=== PATIENT | female | born 1970 | race Caucasian/White ===

== ENCOUNTER 2024-07-01 18:16 | Emergency (ER) | payer OTHER ==
[2024-07-01 18:26] VITALS: RESP 18; TEMP 97.9
--- NOTE | 2024-07-01 19:00 | ERPHSYRPT ---
- History of Present Illness Source: patient Exam Limitations: no limitations Patient Subjective Stated Complaint: Pt states "I have a headache and I took my blood pressure and it was within normal then the headache did not go away so I took my pressure again when I got home and my pressure was up." Triage Nursing Assessment: Pt presented alert and oriented X3, skin pwd. Pt ambulates with an upright steady gait, able to speak in clear full senteces.Pt resting comfortably on the bed. Timing/Duration: today Severity: mild Associated Symptoms: chills, headaches, No nausea, No vomiting, No abdominal pain, No shortness of breath, No fever Hx Tetanus, Diphtheria Vaccination/Date Given: No Hx Influenza Vaccination/Date Given: No Hx Pneumococcal Vaccination/Date Given: No Immunizations Up to Date: No <ALLISNO GARZA - Last Filed: 07/01/24 19:03> <PIERO PAVON - Last Filed: 07/01/24 21:57> - History of Present Illness Time Seen by Provider: 07/01/24 18:40 Physician History: 54yo f no significant pmhx presents via private vehicle for elevated BP that she noticed earlier today at work. Pt reports she had a RODGERS that was behind her eyes and in the back of her head earlier in the day, reports she checked her BP at that time and it was > 130 systolic which she states is high for her. Pt reports she checked her BP again at home and it was >170 systolic. Pt does not take any BP medications. Pt reports her RODGERS has resolved, reports she is feeling anxious about her elevated BP readings. Pt denies any blurry vision, dizziness, CP, sob, n/v. Pt does endorse some chills and recent sick contacts on an airplane. (ALLISON GARZA) Allergies/Adverse Reactions: Sulfa (Sulfonamide Antibiotics) Allergy (Intermediate, Verified 07/01/24 18:26) Hives codeine Adverse Reaction (Intermediate, Verified 07/01/24 18:26) Vomiting Home Medications: No Reportable Medications [No Reported Medications] 07/01/24 [History] Travel Risk - International Travel Have you traveled outside of the country in past 3 weeks: No - Emerging Infectious Disease Are you exhibiting symptoms associated with any current EIDs: No <ALLISON GARZA - Last Filed: 07/01/24 19:03> - Review of Systems Constitutional: Chills, No Fever Eyes: No Symptoms Ears, Nose, & Throat: No Symptoms Respiratory: No Symptoms Cardiac: No Symptoms Abdominal/Gastrointestinal: No Symptoms Psychological: Anxiety <ALLISON GARZA - Last Filed: 07/01/24 19:03> - Past Medical History Pertinent Past Medical History: No - Past Surgical History Past Surgical History: Yes Other Surgical History: c section. d & C. left ankle - Social History Smoking Status: Never smoker Exposure to second hand smoke: No Drug Use: none - Social Determinants of Health Will the patient participate in the screening: Declined to provide <ALLISON GARZA - Last Filed: 07/01/24 19:03> - Physical Exam General Appearance: no apparent distress, alert Eye Exam: PERRL/EOMI, No photophobia Neck Exam: normal inspection, non-tender Respiratory Exam: normal breath sounds, lungs clear, airway intact, No chest tenderness, No respiratory distress Cardiovascular Exam: regular rate/rhythm, normal heart sounds, normal peripheral pulses, capillary refill <2 sec, No murmur Neurologic Exam: alert, oriented x 3, cooperative, precision dancer II-XII nml as tested, normal mood/affect, nml cerebellar function, nml station & gait, sensation nml, No motor deficits SpO2 Interpretation: normal SpO2: 100 O2 Delivery: Room Air <ALLISON GARZA - Last Filed: 07/01/24 19:03> - Nursing Vital Signs Nursing Vital Signs: Initial Vital Signs Pulse Rate 79 07/01/24 18:00 Respiratory Rate 15 07/01/24 18:00 Blood Pressure 130/89 07/01/24 18:00 O2 Sat by Pulse Oximetry 96 07/01/24 18:00 Pain Scale Pain Intensity 3 - Course EKG Interpreted by Me: RATE (89), Sinus Rhythm, Non-specific ST Changes (not suggestive of acute ischemia, qtcb 451) <ALLISON GARZA - Last Filed: 07/01/24 19:03> - CT Exams Head CT Interpretation: Tele-radiologist Report (No acute intracranial pathology.) <PIERO PAVON - Last Filed: 07/01/24 21:57> Ordered Tests: Active Orders 24 hr Category Date Time Status EKG-ER Only STAT Care 07/01/24 18:55 Active IV Insertion STAT Care 07/01/24 20:10 Active HEAD WITHOUT CONTRAST [CT] Stat Exams 07/01/24 20:12 Taken CBC W DIFF Stat Lab 07/01/24 20:44 Completed CMP Stat Lab 07/01/24 20:44 Completed TROPONIN Q4H Lab 07/01/24 20:44 Completed TROPONIN Q4H Lab 07/02/24 00:45 Ordered TROPONIN Q4H Lab 07/02/24 04:45 Ordered UA W/RFX UR CULTURE Stat Lab 07/01/24 21:12 Completed Medication Summary Generic Name Dose Route Start Last Admin Trade Name Freq PRN Reason Stop Dose Admin Sodium Chloride 500 mls @ 500 mls/hr 07/01/24 21:10 07/01/24 21:50 Sodium Chloride 0.9% 500 Ml IV 07/01/24 22:09 0 mls/hr .Q1H ONE Infusion Discontinued Medications Generic Name Dose Route Start Last Admin Trade Name Freq PRN Reason Stop Dose Admin Hydroxyzine HCl 25 mg 07/01/24 18:55 07/01/24 19:07 Hydroxyzine Hcl 25 Mg Tablet PO 07/01/24 18:56 25 mg STAT ONE Administration Hydroxyzine HCl Confirm 07/01/24 19:04 Hydroxyzine Hcl 25 Mg Tablet Administered 07/01/24 19:05 Dose 25 mg .ROUTE .STK-MED ONE Sodium Chloride Confirm 07/01/24 21:14 Sodium Chloride 0.9% 500 Ml Administered 07/01/24 21:15 Dose 500 mls @ ud IV .STK-MED ONE Ketorolac Tromethamine 30 mg 07/01/24 20:11 07/01/24 20:39 Ketorolac Tromethamine 30 Mg/Ml Inj IV 07/01/24 20:12 30 mg STAT ONE Administration Ketorolac Tromethamine Confirm 07/01/24 20:27 Ketorolac Tromethamine 30 Mg/Ml Inj Administered 07/01/24 20:28 Dose 30 mg .ROUTE .STK-MED ONE Prochlorperazine Edisylate 10 mg 07/01/24 20:11 07/01/24 20:41 Prochlorperazine Edisylate 10 Mg/2 Ml Vial IV 07/01/24 20:12 10 mg STAT ONE Administration Prochlorperazine Edisylate Confirm 07/01/24 20:27 Prochlorperazine Edisylate 10 Mg/2 Ml Vial Administered 07/01/24 20:28 Dose 10 mg .ROUTE .STK-MED ONE Lab/Rad Data: Laboratory Result Diagrams 07/01/24 20:44 07/01/24 20:44 Laboratory Results 07/01/24 07/01/24 07/01/24 Range/Units 21:12 20:44 20:44 WBC (3.98-10.04) x10^3/uL RBC (3.93-5.22) x10^6/uL Hgb (11.2-15.7) g/dL Hct (34.1-44.9) % MCV (79.4-94.8) fL MCH (25.6-32.2) pg MCHC (32.2-35.5) g/dL RDW (11.7-14.4) % Plt Count (182-369) x10^3/uL MPV (9.4-12.3) fL Gran % (34.0-71.1) % Immature Gran % (Auto) (0.001-0.429) % Nucleat RBC Rel Count (0.00-0.2) % Eos # (Auto) (0.04-0.36) x10^3/uL Immature Gran # (Auto) (0.001-0.031) x10^3u/L Absolute Lymphs (auto) (1.18-3.74) x10^3/uL Absolute Monos (auto) (0.24-0.86) x10^3/uL Absolute Nucleated RBC (0.00-0.012) x10^3u/L Lymphocytes % (19.3-51.7) % Monocytes % (4.7-12.5) % Eosinophils % (0.7-5.8) % Basophils % (0.1-1.2) % Absolute Granulocytes (1.56-6.13) x10^3/uL Basophils # (0.01-0.08) x10^3/uL Sodium 136 (135-145) mmol/L Potassium 3.9 (3.5-5.1) mmol/L Chloride 102 (98-107) mmol/L Carbon Dioxide 26 (22-30) mmol/L Anion Gap 12.4 (5-15) MEQ/L BUN 20 H (7-17) mg/dL Creatinine 0.69 (0.52-1.04) mg/dL Estimated GFR 102.4 ML/MIN Glucose 98 (74-106) mg/dL Calcium 9.5 (8.4-10.2) mg/dL Total Bilirubin 0.40 (0.2-1.3) mg/dL AST 33 (14-36) U/L ALT 27 (0-35) U/L Alkaline Phosphatase 105 (38-126) U/L Troponin I < 0.012 (0.000-0.033) ng/mL Serum Total Protein 6.8 (6.3-8.2) g/dL Albumin 4.3 (3.5-5.0) g/dL Urine Color Yellow (Yellow) Urine Appearance Clear (Clear) Urine pH 5.5 (4.6-8.0) Ur Specific [place] 1.010 (1.005-1.030) Urine Protein Negative (Negative) Urine Glucose (UA) Negative (Negative) mg/dL Urine Ketones 15 A (Negative) Urine Blood Negative (Negative) Urine Nitrite Negative (Negative) Urine Bilirubin Negative (Negative) Urine Urobilinogen 0.2 (0.2) mg/dL Ur Leukocyte Esterase Trace A (Negative) U Hyaline Cast (Auto) NONE SEEN (0-2) /LPF Urine Microscopic RBC 0-2 (0-5) /HPF Urine Microscopic WBC 0-2 (0-5) /HPF Ur Epithelial Cells None Seen (None Seen) /HPF Urine Bacteria None Seen (None Seen) /HPF Urine Culture Reflexed NO (NO) Influenza Type A Ag (NEGATIVE) Influenza Type B Ag (NEGATIVE) RSV (PCR) (NEGATIVE) SARS-CoV-2 (PCR) (NEGATIVE) 07/01/24 07/01/24 Range/Units 20:44 19:03 WBC 6.9 (3.98-10.04) x10^3/uL RBC 4.35 (3.93-5.22) x10^6/uL Hgb 12.9 (11.2-15.7) g/dL Hct 38.8 (34.1-44.9) % MCV 89.2 (79.4-94.8) fL MCH 29.7 (25.6-32.2) pg MCHC 33.2 (32.2-35.5) g/dL RDW 12.8 (11.7-14.4) % Plt Count 293 (182-369) x10^3/uL MPV 9.3 L (9.4-12.3) fL Gran % 66.4 (34.0-71.1) % Immature Gran % (Auto) 0.3 (0.001-0.429) % Nucleat RBC Rel Count 0.0 (0.00-0.2) % Eos # (Auto) 0.04 (0.04-0.36) x10^3/uL Immature Gran # (Auto) 0.02 (0.001-0.031) x10^3u/L Absolute Lymphs (auto) 1.63 (1.18-3.74) x10^3/uL Absolute Monos (auto) 0.59 (0.24-0.86) x10^3/uL Absolute Nucleated RBC 0.00 (0.00-0.012) x10^3u/L Lymphocytes % 23.8 (19.3-51.7) % Monocytes % 8.6 (4.7-12.5) % Eosinophils % 0.6 L (0.7-5.8) % Basophils % 0.3 (0.1-1.2) % Absolute Granulocytes 4.56 (1.56-6.13) x10^3/uL Basophils # 0.02 (0.01-0.08) x10^3/uL Sodium (135-145) mmol/L Potassium (3.5-5.1) mmol/L Chloride (98-107) mmol/L Carbon Dioxide (22-30) mmol/L Anion Gap (5-15) MEQ/L BUN (7-17) mg/dL Creatinine (0.52-1.04) mg/dL Estimated GFR ML/MIN Glucose (74-106) mg/dL Calcium (8.4-10.2) mg/dL Total Bilirubin (0.2-1.3) mg/dL AST (14-36) U/L ALT (0-35) U/L Alkaline Phosphatase (38-126) U/L Troponin I (0.000-0.033) ng/mL Serum Total Protein (6.3-8.2) g/dL Albumin (3.5-5.0) g/dL Urine Color (Yellow) Urine Appearance (Clear) Urine pH (4.6-8.0) Ur Specific [place] (1.005-1.030) Urine Protein (Negative) Urine Glucose (UA) (Negative) mg/dL Urine Ketones (Negative) Urine Blood (Negative) Urine Nitrite (Negative) Urine Bilirubin (Negative) Urine Urobilinogen (0.2) mg/dL Ur Leukocyte Esterase (Negative) U Hyaline Cast (Auto) (0-2) /LPF Urine Microscopic RBC (0-5) /HPF Urine Microscopic WBC (0-5) /HPF Ur Epithelial Cells (None Seen) /HPF Urine Bacteria (None Seen) /HPF Urine Culture Reflexed (NO) Influenza Type A Ag NEGATIVE (NEGATIVE) Influenza Type B Ag NEGATIVE (NEGATIVE) RSV (PCR) NEGATIVE (NEGATIVE) SARS-CoV-2 (PCR) NEGATIVE (NEGATIVE) <ALLISON GARZA - Last Filed: 07/01/24 19:03> - Progress Progress: improved Counseled pt/family regarding: lab results, diagnosis, need for follow-up, rad results <PIERO PAVON - Last Filed: 07/01/24 21:57> - Progress Progress Note: 07/01/24 19:04 I discussed pt case w/ Dr Pavon who assumed care at 19:00 (ALLISON GARZA) Patient endorsed to Dr. Pavon at approximately 7 PM. Patient's headache reassessed after administration of hydroxyzine prior to change of shift. Patient states her headache did not improve. Patient was concerned as she reported that it was acute onset. We ordered a CT head that was negative for acute intracranial pathology. Patient blood pressure remained elevated. We placed an IV and administered Toradol and Compazine along with IV fluids. Patient requested laboratory studies including a troponin. Lab workup shows of BUN/creatinine ratio greater than 20. Otherwise essentially nonremarkable. UA negative for UTI. Viral panel negative. Patient stated her headache resolved. Patient's blood pressure improved back to her baseline of 130 systolic. Patient neurologically normal. Patient currently asymptomatic requesting discharge. We will discharge patient home. She agrees to follow-up with her primary care doctor within 48 hours for reevaluation. Patient voices no other complaints or concerns at this time. Portions of this note were created with voice recognition technology. There may be grammatical, spelling, punctuation or sound alike errors Complexity of problem addressed is moderate acute complicated. No critical care time. Complexity of data reviewed and analyzed as moderate. Test ordered test reviewed results analyzed and correlated clinically with history and physical exam. Risk of complication and or risk of morbidity/mortality of patient management is low. Vital stable. Time spent to discharge patient is approximately 10 minutes. Plan of care established for shared decision making. No social determinants of health present to impede follow-up. Portions of this note were created with voice recognition technology. There may be grammatical, spelling, punctuation or sound alike errors 07/01/24 21:52 (PIERO PAVON) Medical Desision Making - Risk of complications Minimal Risk: Minimal risk of morbidity <ALLISON GARZA - Last Filed: 07/01/24 19:03> - Departure Departure Disposition: Home Critical Care Time: No <ALLISON GARZA - Last Filed: 07/01/24 19:03> <PIERO PAVON - Last Filed: 07/01/24 21:57> - Departure Clinical Impression: Headache Hypertension Qualifiers: Hypertension type: unspecified Qualified Code(s): I10 - Essential (primary) hypertension Condition: Stable Referrals: Larry MOTT [Primary Care Provider] - Follow up/PCP as directed Instructions: Headaches in adults, Hypertension Additional Instructions: Discharge/Care Plan JACK CHA SIMA was seen on 07/01/24 in the Emergency Room. The patient was counseled regarding Diagnosis,Lab results, Imaging studies, need for follow up and when to return to the Emergency Room. Prescriptions given: Discharge Note I have spoken with the patient and/or caregivers. I have explained the patient's condition, diagnosis and treatment plan based on the information available to me at this time. I have answered the patient's and/or caregiver's questions and addressed any concerns. The patient and/or caregivers have as good understanding of the patient's diagnosis, condition and treatment plan as can be expected at this point. The vital signs have been stable. The patient's condition is stable and appropriate for discharge from the emergency department. The patient will pursue further outpatient evaluation with the primary care physician or other designated or consulting physician as outlined in the dischar ge instructions. The patient and/or caregivers are agreeable to this plan of care and follow-up instructions have been explained in detail. The patient and/or caregivers have received these instruction. The patient/and or caregivers are aware that any significant change in condition or worsening of symptoms should prompt an immediate return to this or the closest emergency department or call 911.
[2024-07-01] MEDS ORDERED: ATARAX 25 MG ONE (19:04)
[2024-07-01] MEDS: ATARAX 25 MG PO ONE (19:07)
[2024-07-01 19:43] LABS: INFLUENZA A NEGATIVE (NEGATIVE); INFLUENZA B NEGATIVE (NEGATIVE); RESPIRATORY SYNCTIAL VIRUS NEGATIVE (NEGATIVE); SARS-CoV-2 Xpert Express NEGATIVE (NEGATIVE)
[2024-07-01] MEDS ORDERED: Compazine 10 MG/2 ML ONE (20:27)
[2024-07-01] MEDS ORDERED: TORAdol 30 mg Injection ONE (20:27)
[2024-07-01] MEDS: TORAdol 30 mg Injection IV ONE (20:39)
[2024-07-01] MEDS: Compazine 10 MG/2 ML IV ONE (20:41)
[2024-07-01 20:45] LABS: Absolute Neutrophil Ct (ANC) 4.56 x10^3/uL (1.56-6.13); BASOPHIL % 0.3 % (0.1-1.2); Basophil (Absolute #) 0.02 x10^3/uL (0.01-0.08); Eosinophil % 0.6 % (0.7-5.8); Eosinophil (Absolute #) 0.04 x10^3/uL (0.04-0.36); Hematocrit 38.8 % (34.1-44.9); Hemoglobin 12.9 g/dL (11.2-15.7); IMMATURE GRAN # 0.02 x10^3u/L (0.001-0.031); IMMATURE GRAN % 0.3 % (0.001-0.429); Lymphocyte (Absolute #) 1.63 x10^3/uL (1.18-3.74); Lymphocytes % 23.8 % (19.3-51.7); Mean Cell Volume 89.2 fL (79.4-94.8); Mean Corpuscular Hemoglobin 29.7 pg (25.6-32.2); Mean Corpuscular Hgb Concent. 33.2 g/dL (32.2-35.5); Mean Platelet Volume 9.3 fL (9.4-12.3); Monocyte (Absolute #) 0.59 x10^3/uL (0.24-0.86); Monocytes % 8.6 % (4.7-12.5); Neutrophil % 66.4 % (34.0-71.1); Platelet Count 293 x10^3/uL (182-369); Red Blood Count 4.35 x10^6/uL (3.93-5.22); Red Cell Distribution Width 12.8 % (11.7-14.4); White Blood Count 6.9 x10^3/uL (3.98-10.04)
[2024-07-01 20:51] LABS: ALBUMIN 4.3 g/dL (3.5-5.0); ANION GAP 12.4 MEQ/L (5-15); BILIRUBIN,TOTAL 0.4 mg/dL (0.2-1.3); Calcium 9.5 mg/dL (8.4-10.2); Creatinine 1 0.69 mg/dL (0.52-1.04); EST GLOMERULAR FILTRATION RATE 102.4 ML/MIN; Potassium 3.9 mmol/L (3.5-5.1); Total Protein 6.8 g/dL (6.3-8.2)
[2024-07-01] MEDS ORDERED: Sodium Chloride 0.9% 500 ML 500 ML IV ONE (21:14)
[2024-07-01] MEDS: Sodium Chloride 0.9% 500 ML 500 ML IV ONE (21:15)
[2024-07-01 21:21] LABS: Appearance Clear (Clear); Bacteria None Seen /HPF (None Seen); Bilirubin Negative (Negative); Blood Negative (Negative); Epithelial Cells None Seen /HPF (None Seen); Glucose, Urine Negative (Negative); Hyaline Casts NONE SEEN /LPF (0-2); Ketones 15 (Negative); Leukocyte Esterase Trace (Negative); Nitrite Negative (Negative); Ph 5.5 (4.6-8.0); Protein,Urine Dip Negative (Negative); RBC 0-2 /HPF (0-5); Urobilinogen 0.2 mg/dL (0.2); WBC 0-2 /HPF (0-5)
[2024-07-01 21:51] VITALS: BP 130/70; PULSE 86; O2SAT 97
--- NOTE | 2024-07-02 08:40 | XRAY ---
Indication: Acute headache. Multiple contiguous axial images obtained through the head without contrast. Comparison: None Normal appearing brain parenchyma, ventricles, and bony calvarium. Visualized paranasal sinuses and mastoid air cells are clear. Impression: Normal CT head without contrast exam.
== END 2024-07-01 21:55 | disposition home or self-care (01) ==
LOC: ED 18:16
DX: I10 Essential (primary) hypertension (principal); R51.9 Headache, unspecified
CPT/HCPCS: 0241U; 36415; 70450; 80053; 81001; 84484; 85025; 93005; 96361; 96374; 96375; 99285; 99284; J1885; A9270-GY